=== PATIENT | female | born 1965 | race Caucasian/White ===

== ENCOUNTER 2017-01-16 08:25 | Emergency (ER) | payer BC ==
[2017-01-16] MEDS ORDERED: HALOPERIDOL LACTATE INJ 5 MG/1 ML VIAL IV ONE (08:30)
[2017-01-16] MEDS ORDERED: ONDANSETRON HCL INJ/PF 4 MG/2 ML SDV IV ONE (08:30)
[2017-01-16 08:58] LABS: ABSOLUTE LYMPHOCYTES (AUTO) 0.9 10^3/uL (0.5-4.7); ABSOLUTE MONOCYTES (AUTO) 0.6 10^3/uL (0.1-1.4); BASOPHILS % (AUTO) 0.2 % (0-2); HEMATOCRIT 38.4 % (36.0-47.0); HEMOGLOBIN 13.1 g/dL (12.0-15.5); HGB HCT DIFFERENCE 0.9; LYMPHOCYTES % (AUTO) 5.8 % (13-45); MEAN CORPUSCULAR HEMOGLOBIN 26.6 pg (27.0-33.4); MEAN CORPUSCULAR HGB CONC 34.2 g/dL (32.0-36.0); MEAN CORPUSCULAR VOLUME 78 fl (80-97); MONOCYTES % (AUTO) 3.6 % (3-13); RED BLOOD COUNT 4.93 10^6/uL (3.72-5.28); RED CELL DISTRIBUTION WIDTH 13.2 % (11.5-14.0); SEGMENTED NEUTROPHILS % (AUTO) 90.4 % (42-78); WHITE BLOOD COUNT 15.5 10^3/uL (4.0-10.5)
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
[2017-01-16 09:18] LABS: ALANINE AMINOTRANSFERASE 43 U/L (9-52); ALBUMIN 4.1 g/dL (3.5-5.0); ALKALINE PHOSPHATASE 153 U/L (38-126); ANION GAP 16 (5-19); ASPARTATE AMINO TRANSFERASE 23 U/L (14-36); BILIRUBIN,DIRECT 0.3 mg/dL (0.0-0.4); BLOOD UREA NITROGEN 16 mg/dL (7-20); CALCIUM 9.9 mg/dL (8.4-10.2); CARBON DIOXIDE 19 mmol/L (22-30); CHLORIDE 107 mmol/L (98-107); CREATINE KINASE 43 U/L (30-135); GLUCOSE 182 mg/dL (75-110); POTASSIUM 3.6 mmol/L (3.6-5.0); SODIUM 141.6 mmol/L (137-145); TOTAL PROTEIN 6.7 g/dL (6.3-8.2)
[2017-01-16 09:23] LABS: CREATINE KINASE MB 1.63 ng/mL (<4.55); TROPONIN I 0.027 ng/mL
--- NOTE | 2017-01-16 11:05 | RADIOLOGY REPORT (SQ) ---
EXAM DESCRIPTION: CTA CHEST COMPLETED DATE/TIME: 01/16/2017 10:02 am REASON FOR STUDY: sob COMPARISON: 07/24/2012 TECHNIQUE: CT scan of the chest performed using helical scanning technique with dynamic intravenous contrast injection. Images reviewed with lung, soft tissue and bone windows. Reconstructed coronal and sagittal MPR images reviewed. Additional 3 dimensional post-processing performed to develop Maximal Intensity Projection images (MT P). All images stored on PACS. All CT scanners at this facility use dose modulation, iterative reconstruction, and/or weight based d osing when appropriate to reduce radiation dose to as low as reasonably achievable (ALARA). [facility]: Dose Right [facility]: CareDose [facility]: Dose Right [facility]: Teradose 4D [facility]: [employer] CONTRAST TYPE AND DOSE: contrast/concentration: Isovue 370.00 mg/ml; Total Contrast Delivered: 61.0 ml; Total Saline Delivered: 80.0 ml Contrast bolus adequate for pulmonary arteries and aorta. RENAL FUNCTION: GFR > 60. RADIATION DOSE: 27.55 . LIMITATIONS: None. FINDINGS: LUNGS AND PLEURA: Stable areas of peripheral scarring. AORTA AND GREAT VESSELS: No aneurysm. Contrast bolus not optimized for the aorta. HEART: No pericardial effusion. No significant coronary artery calcifications. PULMONARY ARTERIES: No emboli visualized in the main pulmonary arteries or the segmental branches. HILAR AND MEDIASTINAL STRUCTURES: 2 cm right hilar node, stable. HARDWARE: None in the chest. UPPER ABDOMEN: No significant findings. Limited exam. THYROID AND OTHER SOFT TISSUES: Stable left thyroid nodule. BONES: No acute or significant finding. 3D MIPS: Confirm above findings. OTHER: No other significant finding. IMPRESSION: No acute findings in the chest. COMMENT: Quality ID # [id number]: Final reports with documentation of one or more dose reduction techniques (e.g., Automated exposure control, adjustment of the mA and/or kV according to patient size, use of iterative reconstruction technique) TECHNICAL DOCUMENTATION: JOB ID: [id number] [employer]- All Rights Reserved
[2017-01-16 11:31] VITALS: BP 160/79
== END 2017-01-16 11:31 | disposition home or self-care (01) ==
LOC: ER 08:25
DX: R06.02 Shortness of breath (principal); R11.2 Nausea with vomiting, unspecified; R19.7 Diarrhea, unspecified; I10 Essential (primary) hypertension; M79.1 Myalgia; F17.210 Nicotine dependence, cigarettes, uncomplicated; Z90.710 Acquired absence of both cervix and uterus
CPT/HCPCS: 99285; 96374; 96375; 36415; 82553; 82550; 85025; 80053; 84484; 87804; 71275; J1630; J2405

== ENCOUNTER 2017-01-17 15:50 | Emergency (ER) | payer BC ==
[2017-01-17 15:59] VITALS: BP 144/91
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
== END 2017-01-17 16:47 | disposition home or self-care (01) ==
LOC: ER 15:50
DX: T45.0X5A Adverse effect of antiallergic and antiemetic drugs, initial encounter (principal); R11.2 Nausea with vomiting, unspecified; F17.210 Nicotine dependence, cigarettes, uncomplicated
CPT/HCPCS: 99283

== ENCOUNTER 2018-10-06 07:29 | Inpatient (IN) | payer BC ==
[2018-10-06] MEDS ORDERED: DIPHENHYDRAMINE HCL 50 MG/ML VIAL IV ONE (08:09)
[2018-10-06] MEDS ORDERED: NORMAL SALINE 1000 ML 1,000 ML IV ONE (08:09)
[2018-10-06 08:24] LABS: ABSOLUTE MONOCYTES (AUTO) 0.3 10^3/uL (0.1-1.4); ABSOLUTE NEUT (AUTO) 8.6 10^3/uL (1.7-8.2); BASOPHILS % (AUTO) 0.2 % (0-2); EOSINOPHILS % (AUTO) 0.1 % (0-6); LYMPHOCYTES % (AUTO) 9.8 % (13-45); MEAN CORPUSCULAR HEMOGLOBIN 26.4 pg (27.0-33.4); MEAN CORPUSCULAR HGB CONC 35.2 g/dL (32.0-36.0); MEAN CORPUSCULAR VOLUME 75 fl (80-97); PLATELET COUNT 324 10^3/uL (150-450); RED BLOOD COUNT 4.93 10^6/uL (3.72-5.28); RED CELL DISTRIBUTION WIDTH 13.5 % (11.5-14.0); SEGMENTED NEUTROPHILS % (AUTO) 86.9 % (42-78); TOTAL CELLS COUNTED % (AUTO) 100 %; WHITE BLOOD COUNT 9.9 10^3/uL (4.0-10.5)
--- NOTE | 2018-10-06 08:42 | RADIOLOGY REPORT (SQ) ---
EXAM DESCRIPTION: ACUTE ABDOMEN SERIES COMPLETED DATE/TIME: 10/06/2018 8:27 am REASON FOR STUDY: Generalized abdominal pain with nausea COMPARISON: None. NUMBER OF VIEWS: Three views. TECHNIQUE: Frontal chest, supine abdomen and upright/decubitus abdomen radiographic images acquired. LIMITATIONS: None. FINDINGS: CHEST: Suspect old right posterior rib fractures. No acute infiltrates. FREE AIR: None. No abnormal gas collections. BOWEL GAS PATTERN: Nonobstructive pattern. No dilated loops or air fluid levels. CALCIFICATIONS: No suspicious calcifications. HARDWARE: None in the abdomen. SOFT TISSUES: No gross mass or suggestion of organomegaly. BONES: No acute fracture. No worrisome bone lesions. OTHER: No other significant finding. IMPRESSION: NO RADIOGRAPHIC EVIDENCE FOR ACUTE ABDOMINAL DISEASE. TECHNICAL DOCUMENTATION: JOB ID: [id number] [employer]- All Rights Reserved Reading location - IP/workstation name: [email or web address]
[2018-10-06 08:43] LABS: ALBUMIN 4.1 g/dL (3.5-5.0); ALKALINE PHOSPHATASE 121 U/L (38-126); ANION GAP 16 (5-19); ASPARTATE AMINO TRANSFERASE 25 U/L (14-36); BILIRUBIN,DIRECT 0.2 mg/dL (0.0-0.4); BILIRUBIN,TOTAL 0.6 mg/dL (0.2-1.3); BLOOD UREA NITROGEN 17 mg/dL (7-20); CALCIUM 10.3 mg/dL (8.4-10.2); CARBON DIOXIDE 21 mmol/L (22-30); CHLORIDE 98 mmol/L (98-107); GLUCOSE 195 mg/dL (75-110); TOTAL PROTEIN 7.2 g/dL (6.3-8.2)
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
[2018-10-06 09:10] LABS: AMORPHOUS SEDIMENT,URINE TRACE /HPF; APPEARANCE,URINE CLOUDY; BILIRUBIN,URINE NEGATIVE (NEGATIVE); COLOR,URINE YELLOW; GLUCOSE, URINE NEGATIVE (NEGATIVE); KETONES,URINE 20 mg/dL (NEGATIVE); LEUKOCYTE ESTERASE,URINE LARGE (NEGATIVE); NITRITE,URINE NEGATIVE (NEGATIVE); PROTEIN,URINE 30 mg/dL (NEGATIVE); URINE SPECIFIC GRAVITY 1.015; UROBILINOGEN,URINE NEGATIVE mg/dL (<2.0)
[2018-10-06] MEDS ORDERED: CEFTRIAXONE 1 GM/D5W RTU 1 GM/50 ML RTUPB IV ONE (09:37)
[2018-10-06 11:23] LABS: AMORPHOUS SEDIMENT,URINE TRACE /HPF; APPEARANCE,URINE CLEAR; BILIRUBIN,URINE NEGATIVE (NEGATIVE); COLOR,URINE STRAW; GLUCOSE, URINE 50 mg/dL (NEGATIVE); KETONES,URINE NEGATIVE (NEGATIVE); LEUKOCYTE ESTERASE,URINE TRACE (NEGATIVE); NITRITE,URINE POSITIVE (NEGATIVE); PROTEIN,URINE NEGATIVE (NEGATIVE); URINE SPECIFIC GRAVITY 1.009; UROBILINOGEN,URINE NEGATIVE mg/dL (<2.0)
[2018-10-06 12:39] LABS: VENOUS BLOOD BASE EXCESS 0.6 mmol/L; VENOUS BLOOD PCO2 26.6 mmHg (35-63); VENOUS BLOOD PH 7.54 (7.30-7.42)
--- NOTE | 2018-10-06 13:40 | RADIOLOGY REPORT (SQ) ---
EXAM DESCRIPTION: CTA CHEST COMPLETED DATE/TIME: 10/06/2018 1:24 pm REASON FOR STUDY: Hyperventilating, elevated d-dimer COMPARISON: [address] chest studies. TECHNIQUE: CT scan of the chest performed using helical scanning technique with dynamic intravenous contrast injection. Images reviewed with lung, soft tissue and bone windows. Reconstructed coronal and sagittal MPR images reviewed. Additional 3 dimensional post-processing performed to develop Maximal Intensity Projection images (AR P). All images stored on PACS. All CT scanners at this facility use dose modulation, iterative reconstruction, and/or weight based d osing when appropriate to reduce radiation dose to as low as reasonably achievable (ALARA). [facility]: Dose Right [facility]: CareDose [facility]: Dose Right [facility]: Teradose 4D [facility]: [employer] RENAL FUNCTION: GFR > 60. RADIATION DOSE: CT Rad equipment meets quality standard of care and radiation dose reduction techniq ues were employed. CTDIvol: 9.9 - 14.3 mGy. DLP: 500 mGy-cm. . LIMITATIONS: Slightly suboptimal opacification of the pulmonary arteries. Motion artifact limits ev aluation of the small caliber branches in the lower lobes. FINDINGS: LUNGS AND PLEURA: Motion artifact. 4 mm left lower lobe pulmonary nodule, image 68. This looks chronic. No significant pleural disease. AORTA AND GREAT VESSELS: No aneurysm. Contrast bolus not optimized for the aorta. HEART: No pericardial effusion. No significant coronary artery calcifications. PULMONARY ARTERIES: As above, slightly sub optimal opacification with limiting motion particularly in the lung bases. No central main pulmonary artery clot. Peripheral lower lobe branch segmental and subsegmental clot is possible, however poor opacification here is felt to be generally related to mot ion artifact. HILAR AND MEDIASTINAL STRUCTURES: No identified masses or abnormal nodes. HARDWARE: None in the chest. UPPER ABDOMEN: Presumed scarring in the left kidney, lobulated mildly atrophic appearance. Probable renal cysts bilaterally. THYROID AND OTHER SOFT TISSUES: Enlarged thyroid, multinodular appearance. Airway is patent. No axi llary adenopathy. BONES: No acute or significant finding. 3D MIPS: Confirm above findings. OTHER: No other significant finding. IMPRESSION: 1. No main pulmonary embolus detected. Lower lobe peripheral branches are not well assessed, see amado itations above. 2. 4 mm left lower lobe pulmonary nodule, stable. COMMENT: Quality ID # [id number]: Final reports with documentation of one or more dose reduction techniques (e.g., Automated exposure control, adjustment of the mA and/or kV according to patient size, use of iterative reconstruction technique) TECHNICAL DOCUMENTATION: JOB ID: [id number] [employer]- All Rights Reserved Reading location - IP/workstation name: [email or web address] AND RECEIVING [email or web address]
[2018-10-06 14:37] LABS: FREE T3 > 22.80 pg/mL (2.77-5.27); FREE T4 (FREE THYROXINE) > 6.99 ng/dL (0.78-2.19)
--- NOTE | 2018-10-06 14:37 | EKG REPORT ---
SEVERITY:- ABNORMAL ECG - SINUS TACHYCARDIA MULTIFORM VENTRICULAR PREMATURE COMPLEXES FIRST DEGREE AV BLOCK CONSIDER LEFT VENTRICULAR HYPERTROPHY : Confirmed by: Justice Jacob MD 06-Oct-2018 14:36:39
[2018-10-06] MEDS ORDERED: METOPROLOL TARTRATE PF/INJ 5 MG/5 ML SDV IV ONE (14:44)
[2018-10-06] MEDS ORDERED: ONDANSETRON HCL INJ/PF 4 MG/2 ML SDV IV PRN (15:38)
[2018-10-06] MEDS ORDERED: ACETAMINOPHEN 325 MG TABLET PO PRN (15:38)
[2018-10-06] MEDS ORDERED: IPRATROPIUM/ALBUTEROL 0.5-2.5 MG/3 ML AMPUL NEB PRN (15:38)
[2018-10-06] MEDS ORDERED: PROMETHAZINE HCL INJ 25 MG/1 ML VIAL IV PRN (15:38)
[2018-10-06] MEDS ORDERED: MAG HYDROX/AL HYDROX/SIMETH SUSP 30 ML UDCUP PO PRN (15:38)
[2018-10-06 15:46] LABS: URINE AMPHETAMINES SCREEN NEGATIVE; URINE BARBITURATES SCREEN NEGATIVE; URINE BENZODIAZEPINES SCREEN NEGATIVE; URINE COCAINE SCREEN NEGATIVE; URINE MARIJUANA (THC) SCREEN UNCONFIRMED POSITIVE; URINE METHADONE SCREEN NEGATIVE; URINE PHENCYCLIDINE SCREEN NEGATIVE
--- NOTE | 2018-10-06 16:04 | PDOC H&P ---
History of Present Illness Patient complains of: N/V/D, anxiety and fatigue History of Present Illness: BEBE CARCAMO is a 53 year old female with no significant past medical history other than tobacco dependence who presented to the emergency department today with a report of onset of severe fatigue beginning Monday, followed by onset of increased heart rate, palpitations, inability to sleep, anxiety, nausea vomiting and diarrhea beginning yesterday. She does note that she has been heat intolerant with frequent hot flashes, and a 10 to 20 pound weight loss over the previous 1 to 2 months. Evaluation in the emergency department found Tachycardia (131), hypertension 163/105), tachypnea (26) unremarkable CBC, elevated d-dimer, acute respiratory alkalosis by ABG, unremarkable chemistry, A1c 5.6%, and UTI by urinalysis. Acute abdominal series was benign, and CTA of the chest was negative for pulmonary embolus, acute findings, but is redemonstrated 4 mm left lower lobe pulmonary nodule that is stable from prior exams. Of significance, the patient's TSH was undetectable with a free T4>6.99 and free T3>22.8 (exceeding our laboratory's ability to measure). The patient was provided Lopressor 5 mg IV x1, a 1 L normal saline bolus, and referred to the hospitalist service for admission and management of thyroid storm. Past Medical History Cardiac Medical History: Denies: Congestive Heart Failure, Coronary Artery Disease, Myocardial Infarction, Hyperlipidema, Hypertension Pulmonary Medical History: Reports: None EENT Medical History: Reports: None Neurological Medical History: Denies: Ischemic CVA, Migraine Endocrine Medical History: Reports: None Renal/ Medical History: Reports: None GI Medical History: Reports: None Musculoskeltal Medical History: Reports: None Skin Medical History: Reports: None Psychiatric Medical History: Reports: Tobacco Dependency Traumatic Medical History: Reports: None Hematology: Reports: None Infectious Medical History: Reports: None Denies: Clostridium Difficile Past Surgical History Past Surgical History: Reports: Hysterectomy, Orthopedic Surgery - L4-5 discectomy 1986, Other - Ex lap with liver repair Social History Information Source: Patient Lives with: Alone Smoking Status: Current Every Day Smoker Cigarettes Packs Per Day: 0.3 Frequency of Alcohol Use: None Hx Recreational Drug Use: No Hx Prescription Drug Abuse: No - Advance Directive Resuscitation Status: Full Code Family History Family History: Reviewed & Not Pertinent, CAD, CVA Parental Family History Reviewed: Yes Children Family History Reviewed: Yes Sibling(s) Family History Reviewed.: Yes Medication/Allergy Home Medications: Metoclopramide HCl [Reglan 10 mg Tablet] 1 - 2 tab PO Q6 #25 tablet 01/16/17 Allergies/Adverse Reactions: metoclopramide [From Reglan] Allergy (Verified 10/06/18 07:31) Review of Systems Constitutional: PRESENT: anorexia, weight loss. ABSENT: chills, fever(s), headache(s), weight gain Eyes: ABSENT: visual disturbances Ears: ABSENT: hearing changes Cardiovascular: PRESENT: palpitations. ABSENT: chest pain, dyspnea on exertion, edema, orthropnea Respiratory: ABSENT: cough, hemoptysis Gastrointestinal: PRESENT: diarrhea, nausea, vomiting. ABSENT: abdominal pain, constipation, hematemesis, hematochezia Genitourinary: ABSENT: dysuria, hematuria Musculoskeletal: ABSENT: joint swelling Integumentary: ABSENT: rash, wounds Neurological: PRESENT: restless legs. ABSENT: abnormal gait, abnormal speech, confusion, dizziness, focal weakness, syncope Psychiatric: PRESENT: anxiety. ABSENT: depression, homidical ideation, suicidal ideation Endocrine: PRESENT: heat intolerance. ABSENT: cold intolerance, polydipsia, polyuria Hematologic/Lymphatic: ABSENT: easy bleeding, easy bruising Physical Exam Vital Signs: Temp Pulse Resp BP Pulse Ox 97.7 F 98 24 H 165/92 H 97 10/06/18 07:33 10/06/18 07:33 10/06/18 14:01 10/06/18 14:00 10/06/18 14:01 Intake & Output 10/05/18 10/06/18 10/07/18 06:59 06:59 06:59 Intake Total 1050 Balance 1050 Weight 48.4 kg General appearance: PRESENT: no acute distress, cooperative, thin, well- developed, well-nourished Head exam: PRESENT: atraumatic, normocephalic Eye exam: PRESENT: conjunctiva pink, EOMI, PERRLA, other - lid lag. ABSENT: scleral icterus Ear exam: PRESENT: normal external ear exam Mouth exam: PRESENT: moist, tongue midline Teeth exam: PRESENT: poor dentation Neck exam: PRESENT: thyromegaly. ABSENT: carotid bruit, JVD, lymphadenopathy Respiratory exam: PRESENT: clear to auscultation karl, symmetrical, unlabored. ABSENT: rales, rhonchi, wheezes Cardiovascular exam: PRESENT: RRR, +S1, +S2, tachycardia. ABSENT: diastolic murmur, rubs, systolic murmur Pulses: PRESENT: normal dorsalis pedis pul Vascular exam: PRESENT: normal capillary refill GI/Abdominal exam: PRESENT: normal bowel sounds, soft. ABSENT: distended, guarding, mass, organolmegaly, rebound, tenderness Rectal exam: PRESENT: deferred Extremities exam: PRESENT: full ROM. ABSENT: calf tenderness, clubbing, pedal edema Neurological exam: PRESENT: alert, awake, oriented to person, oriented to place, oriented to time, oriented to situation, CN II-XII grossly intact. ABSENT: motor sensory deficit Psychiatric exam: PRESENT: anxious, appropriate affect, normal mood. ABSENT: homicidal ideation, suicidal ideation Focused psych exam: PRESENT: restlessness Skin exam: PRESENT: dry, intact, warm. ABSENT: cyanosis, rash Results Laboratory Results: 10/06/18 08:04 10/06/18 08:04 10/06/18 10/06/18 10/06/18 08:04 08:04 08:04 WBC 9.9 RBC 4.93 Hgb 13.0 Hct 37.0 MCV 75 L MCH 26.4 L MCHC 35.2 RDW 13.5 Plt Count 324 Seg Neutrophils % 86.9 H Carbonic Acid HCO3/H2CO3 Ratio ABG pH ABG pCO2 ABG pO2 ABG HCO3 ABG O2 Saturation ABG Base Excess VBG pH VBG pCO2 VBG HCO3 VBG Base Excess FiO2 Sodium 135.1 L Potassium 4.0 Chloride 98 Carbon Dioxide 21 L Anion Gap 16 BUN 17 Creatinine 0.57 Est GFR ( Amer) > 60 Glucose 195 H Calcium 10.3 H Total Bilirubin 0.6 AST 25 Alkaline Phosphatase 121 Total Protein 7.2 Albumin 4.1 Lipase 72.9 TSH < 0.01 L Free T4 Free T3 pg/mL Urine Color Urine Appearance Urine pH Ur Specific Benton Urine Protein Urine Glucose (UA) Urine Ketones Urine Blood Urine Nitrite Ur Leukocyte Esterase Urine WBC (Auto) Urine RBC (Auto) 10/06/18 10/06/18 10/06/18 08:04 08:30 10:58 WBC RBC Hgb Hct MCV MCH MCHC RDW Plt Count Seg Neutrophils % Carbonic Acid HCO3/H2CO3 Ratio ABG pH ABG pCO2 ABG pO2 ABG HCO3 ABG O2 Saturation ABG Base Excess VBG pH VBG pCO2 VBG HCO3 VBG Base Excess FiO2 Sodium Potassium Chloride Carbon Dioxide Anion Gap BUN Creatinine Est GFR ( Amer) Glucose Calcium Total Bilirubin AST Alkaline Phosphatase Total Protein Albumin Lipase TSH Free T4 > 6.99 H Free T3 pg/mL > 22.80 H Urine Color YELLOW STRAW Urine Appearance CLOUDY CLEAR Urine pH 9.0 8.0 Ur Specific Benton 1.015 1.009 Urine Protein 30 H NEGATIVE Urine Glucose (UA) NEGATIVE 50 H Urine Ketones 20 H NEGATIVE Urine Blood SMALL H SMALL H Urine Nitrite NEGATIVE POSITIVE H Ur Leukocyte Esterase LARGE H TRACE H Urine WBC (Auto) >182 10 Urine RBC (Auto) 31 2 10/06/18 10/06/18 12:15 12:15 WBC RBC Hgb Hct MCV MCH MCHC RDW Plt Count Seg Neutrophils % Carbonic Acid Cancelled HCO3/H2CO3 Ratio Cancelled ABG pH Cancelled ABG pCO2 Cancelled ABG pO2 Cancelled ABG HCO3 Cancelled ABG O2 Saturation Cancelled ABG Base Excess Cancelled VBG pH 7.54 H VBG pCO2 26.6 L VBG HCO3 22.0 VBG Base Excess 0.6 FiO2 Cancelled Sodium Potassium Chloride Carbon Dioxide Anion Gap BUN Creatinine Est GFR ( Amer) Glucose Calcium Total Bilirubin AST Alkaline Phosphatase Total Protein Albumin Lipase TSH Free T4 Free T3 pg/mL Urine Color Urine Appearance Urine pH Ur Specific B[place] Urine Protein Urine Glucose (UA) Urine Ketones Urine Blood Urine Nitrite Ur Leukocyte Esterase Urine WBC (Auto) Urine RBC (Auto) Impressions: Acute Abdomen Series 10/06/18 08:08 IMPRESSION: NO RADIOGRAPHIC EVIDENCE FOR ACUTE ABDOMINAL DISEASE. Chest/Abdomen CTA 10/06/18 12:50 IMPRESSION: 1. No main pulmonary embolus detected. Lower lobe peripheral branches are not well assessed, see limitations above. 2. 4 mm left lower lobe pulmonary nodule, stable. Assessment and Plan - Diagnosis (1) Thyrotoxicosis Qualifiers: Thyrotoxicosis type: unspecified thyrotoxicosis type Thyrotoxic crisis or storm presence: with thyrotoxic crisis or storm Qualified Code(s): E05.91 - Thyrotoxicosis, unspecified with thyrotoxic crisis or storm Is this a current diagnosis for this admission?: Yes Plan: Patient is admitted to ICU on continuous cardiac telemetry. Continue generous IV fluids. Start propanolol 60 mg p.o. every 6 hours. Start PTU 200 mg every 4 hours. Start SSKI iodine solution every 6 hours. Start hydrocortisone 100 mg IV every 8 hours. Antiemetics as needed. Tylenol as needed for fever/headache; avoid ASA. Thyroid U/S pending. (2) UTI (urinary tract infection) Qualifiers: Urinary tract infection type: acute cystitis Hematuria presence: with hematuria Qualified Code(s): N30.01 - Acute cystitis with hematuria Is this a current diagnosis for this admission?: Yes Plan: Urinalysis reveals urinary tract infection with positive glucose, blood, nitrites, leukoesterase, and WBCs. Patient does endorse increased urinary frequency, help back, has endorsed increased water intake due to thirst. Urine culture is pending. IV Rocephin. 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 Management as above. Cardiac diet. (4) Tachycardia Is this a current diagnosis for this admission?: Yes Plan: Secondary to thyroid storm. Management as above. (5) Tobacco dependence Is this a current diagnosis for this admission?: Yes Plan: Smoking cessation encouraged, nicotine replacement therapies provided. - Time Time Spent with patient: 35 or more minutes Medications reviewed and adjusted accordingly: Yes Anticipated discharge: Home - Inpatient Certification Based on my medical assessment, after consideration of the patient's c omorbidities, presenting symptoms, or acuity I expect that the services needed warrant INPATIENT care.: Yes I certify that my determination is in accordance with my understanding of Medicare's requirements for reasonable and necessary INPATIENT services [42 CFR 412.3e].: Yes Medical Necessity: Need Close Monitoring Due to Risk of Patient Decompensation, Need For Continuous Telemetry Monitoring, Risk of Complication if Not Cared For in Hospital
[2018-10-06] MEDS: PROPRANOLOL HCL 20 MG TABLET PO SCH (16:58)
[2018-10-06] MEDS: POTASSIUM IODIDE 1 GM/1 ML 30 ML BOTTLE PO SCH (16:59)
[2018-10-06] MEDS: NORMAL SALINE 1000 ML 1,000 ML IV PRN (18:39)
--- NOTE | 2018-10-06 18:59 | RADIOLOGY REPORT (SQ) ---
EXAM DESCRIPTION: U/S THYROID/SFT TISS HD NECK COMPLETED DATE/TIME: 10/06/2018 6:45 pm REASON FOR STUDY: Thyroid justin COMPARISON: None. TECHNIQUE: Dynamic and static morales-scale images acquired of the thyroid gland. Selected additional c olor/power Doppler images recorded. All images stored to PACS. LIMITATIONS: None. FINDINGS: RIGHT LOBE: 4.3 cm. Heterogeneous echotexture. Hypervascular. No cystic or solid masses . LEFT LOBE: 5.8 cm. Heterogeneous echotexture. Hypervascular. No cystic or solid masses. ISTHMUS: 5 mm. Heterogeneous echotexture. No cystic or solid masses. OTHER: No other significant finding. IMPRESSION: ENLARGED THYROID WITH HETEROGENOUS ECHOTEXTURE AND HYPERVASCULARITY. TECHNICAL DOCUMENTATION: JOB ID: [id number] [employer]- All Rights Reserved Reading location - IP/workstation name: [email or web address]
[2018-10-06] MEDS: HEPARIN SOD (PORCINE) 5,000 UNIT/ML 1 ML VIAL SUBCUT SCH (21:18)
[2018-10-06] MEDS: PROPYLTHIOURACIL 50 MG TABLET PO SCH ×2 (21:18→23:55)
[2018-10-06] MEDS: HYDROCORTISONE SOD SUCCINATE INJ/PF 100 MG/2 ML SDV IV SCH (21:19)
[2018-10-07] MEDS: PROPRANOLOL HCL 20 MG TABLET PO SCH ×2 (01:10→05:38)
[2018-10-07] MEDS: POTASSIUM IODIDE 1 GM/1 ML 30 ML BOTTLE PO SCH ×3 (01:15→11:40)
[2018-10-07] MEDS: NORMAL SALINE 1000 ML 1,000 ML IV PRN ×3 (03:05→21:10)
[2018-10-07 03:56] LABS: ABSOLUTE MONOCYTES (AUTO) 0.4 10^3/uL (0.1-1.4); ABSOLUTE NEUT (AUTO) 5.8 10^3/uL (1.7-8.2); BASOPHILS % (AUTO) 0.4 % (0-2); HEMATOCRIT 35.2 % (36.0-47.0); HEMOGLOBIN 12.1 g/dL (12.0-15.5); MEAN CORPUSCULAR HEMOGLOBIN 26.2 pg (27.0-33.4); MEAN CORPUSCULAR HGB CONC 34.5 g/dL (32.0-36.0); MEAN CORPUSCULAR VOLUME 76 fl (80-97); MONOCYTES % (AUTO) 5.6 % (3-13); PLATELET COUNT 282 10^3/uL (150-450); RED BLOOD COUNT 4.64 10^6/uL (3.72-5.28); RED CELL DISTRIBUTION WIDTH 13.4 % (11.5-14.0); TOTAL CELLS COUNTED % (AUTO) 100 %; WHITE BLOOD COUNT 7.3 10^3/uL (4.0-10.5)
[2018-10-07 04:13] LABS: ANION GAP 9 (5-19); BLOOD UREA NITROGEN 13 mg/dL (7-20); CALCIUM 9.8 mg/dL (8.4-10.2); CARBON DIOXIDE 24 mmol/L (22-30); CHLORIDE 104 mmol/L (98-107); GLUCOSE 138 mg/dL (75-110); POTASSIUM 3.8 mmol/L (3.6-5.0)
[2018-10-07] MEDS: PROPYLTHIOURACIL 50 MG TABLET PO SCH ×3 (04:17→11:38)
[2018-10-07] MEDS: HEPARIN SOD (PORCINE) 5,000 UNIT/ML 1 ML VIAL SUBCUT SCH ×3 (05:38→22:14)
[2018-10-07] MEDS: HYDROCORTISONE SOD SUCCINATE INJ/PF 100 MG/2 ML SDV IV SCH ×2 (05:38→13:33)
[2018-10-07] MEDS: CEFTRIAXONE 1 GM/D5W RTU 1 GM/50 ML RTUPB IV SCH (09:33)
[2018-10-07] MEDS: NICOTINE 7 MG/24 HR PATCH.TD24 TD SCH (09:41)
[2018-10-07 11:59] LABS: TROPONIN I 0.098 ng/mL
[2018-10-07] MEDS ORDERED: HYDROXYZINE PAMOATE 25 MG CAPSULE PO PRN (12:39)
[2018-10-07] MEDS ORDERED: METOPROLOL TARTRATE PF/INJ 5 MG/5 ML SDV IV ONE (13:00)
--- NOTE | 2018-10-07 16:33 | PDOC PROGRESS REPORT ---
Subjective Progress Note for:: 10/07/18 Subjective:: BEBE CARCAMO is a 53 year old female with no significant past medical history other than tobacco dependence who was admitted 10/06/18 for thyrotoxicosis with thyroid storm. Patient is seen on morning rounds. She is found resting in bed comfortably on room air. She is noted to continue to have an anxious disposition, however, her heart rate is now in the mid 90s with acceptable blood pressures. She reports that her shortness of breath has improved and that she is relieved to longer be restless. She does state that she had difficulty sleeping last night, though this was also slightly improved from previous few days. She does report left chest wall pain that is nonradiating, not associated with symptoms, and without exacerbating or alleviating factors. She denies fever, chills, palpitations, dyspnea, orthopnea, abdominal pain, nausea and vomiting. She reports one diarrheal bowel movement today. She has no other questions or concern. No concerns per nursing. Reason For Visit: THRYOID STORM Physical Exam Vital Signs: Temp Pulse Resp BP Pulse Ox 98.2 F 100 23 H 121/72 98 10/07/18 12:00 10/07/18 12:00 10/07/18 14:00 10/07/18 13:36 10/07/18 14:00 Intake & Output 10/06/18 10/07/18 10/08/18 06:59 06:59 06:59 Intake Total 2050 1500 Output Total 1700 800 Balance 350 700 Weight 49.6 kg General appearance: PRESENT: no acute distress, cooperative, thin, well- developed, well-nourished Head exam: PRESENT: atraumatic, normocephalic Eye exam: PRESENT: conjunctiva pink, EOMI, PERRLA. ABSENT: scleral icterus Ear exam: PRESENT: normal external ear exam Mouth exam: PRESENT: moist, tongue midline Teeth exam: PRESENT: poor dentation Neck exam: ABSENT: carotid bruit, JVD, lymphadenopathy, thyromegaly Respiratory exam: PRESENT: clear to auscultation karl, symmetrical, unlabored. ABSENT: rales, rhonchi, wheezes Cardiovascular exam: PRESENT: gallop, RRR, +S1, +S2. ABSENT: diastolic murmur, rubs, systolic murmur Pulses: PRESENT: normal dorsalis pedis pul Vascular exam: PRESENT: normal capillary refill GI/Abdominal exam: PRESENT: normal bowel sounds, soft. ABSENT: distended, guarding, mass, organolmegaly, rebound, tenderness Rectal exam: PRESENT: deferred Extremities exam: PRESENT: full ROM. ABSENT: calf tenderness, clubbing, pedal edema Neurological exam: PRESENT: alert, awake, oriented to person, oriented to place, oriented to time, oriented to situation, CN II-XII grossly intact. ABSENT: motor sensory deficit Psychiatric exam: PRESENT: anxious, appropriate affect, normal mood. ABSENT: homicidal ideation, suicidal ideation Focused psych exam: PRESENT: restlessness Skin exam: PRESENT: dry, intact, warm. ABSENT: cyanosis, rash Results Laboratory Results: 10/07/18 03:47 10/07/18 03:47 10/07/18 10/07/18 03:47 03:47 WBC 7.3 RBC 4.64 Hgb 12.1 Hct 35.2 L MCV 76 L MCH 26.2 L MCHC 34.5 RDW 13.4 Plt Count 282 Seg Neutrophils % 80.0 H Sodium 137.0 Potassium 3.8 Chloride 104 Carbon Dioxide 24 Anion Gap 9 BUN 13 Creatinine 0.52 Est GFR ( Amer) > 60 Glucose 138 H Calcium 9.8 10/07/18 10/07/18 11:17 15:12 Troponin I 0.098 0.089 NT-Pro-B Natriuret Pep 5820 H Impressions: Thyroid Ultrasound 10/06/18 00:00 IMPRESSION: ENLARGED THYROID WITH HETEROGENOUS ECHOTEXTURE AND HYPERVASCULARITY. Acute Abdomen Series 10/06/18 08:08 IMPRESSION: NO RADIOGRAPHIC EVIDENCE FOR ACUTE ABDOMINAL DISEASE. Chest/Abdomen CTA 10/06/18 12:50 IMPRESSION: 1. No main pulmonary embolus detected. Lower lobe peripheral branches are not well assessed, see limitations above. 2. 4 mm left lower lobe pulmonary nodule, stable. Assessment and Plan - Diagnosis (1) Thyrotoxicosis Qualifiers: Thyrotoxicosis type: unspecified thyrotoxicosis type Thyrotoxic crisis or storm presence: with thyrotoxic crisis or storm Qualified Code(s): E05.91 - Thyrotoxicosis, unspecified with thyrotoxic crisis or storm Is this a current diagnosis for this admission?: Yes Plan: Patient was admitted to ICU on continuous cardiac telemetry. Continue IV fluids. Discussed with Dr. Piña, Biometric Screener at [facility]. Will transition to metoprolol XL 100 mg BID and methimazole 30 mg p.o. twice daily May discontinue SSKI and hydrocortisone Antiemetics as needed. Tylenol as needed for fever/headache; avoid ASA. Patient stable for discharge once blood pressures are controlled and heart rate is stable at less than 90. Will ensure patient has endocrinology follow-up appointment scheduled prior to discharge. (2) UTI (urinary tract infection) Qualifiers: Urinary tract infection type: acute cystitis Hematuria presence: with hematuria Qualified Code(s): N30.01 - Acute cystitis with hematuria Is this a current diagnosis for this admission?: Yes Plan: Urinalysis reveals urinary tract infection with positive glucose, blood, nitrites, leukoesterase, and WBCs. Patient does endorse increased urinary frequency, help back, has endorsed increased water intake due to thirst. Urine culture shows gram-negative rods. IV Rocephin. (3) High blood pressure Qualifiers: Hypertension type: secondary to endocrine disorders Qualified Code(s): I15.2 - Hypertension secondary to endocrine disorders Is this a current diagnosis for this admission?: Yes Plan: Improved; blood pressures this afternoon 132/64 Secondary to thyroid storm. Management as above. Cardiac diet. (4) Tachycardia Is this a current diagnosis for this admission?: Yes Plan: Improved; heart rate now persistently mid to high 90s Secondary to thyroid storm. Management as above. (5) Tobacco dependence Is this a current diagnosis for this admission?: Yes Plan: Smoking cessation encouraged, nicotine replacement therapies provided. (6) CHF (congestive heart failure) Is this a current diagnosis for this admission?: Yes Plan: Possible CHF; unclear if this was underlying or related to thyrotoxicosis. proBNP is elevated to 5820. Lung sounds are clear, no peripheral edema. Echocardiogram pending. Patient will require cardiology follow-up. (7) Chest pain Qualifiers: Chest pain type: unspecified Qualified Code(s): R07.9 - Chest pain, unspecified Is this a current diagnosis for this admission?: Yes Plan: Patient describes left-sided chest discomfort described as tightness today. She is unable to state when this occurred. Pain is constant, no alleviating or aggravating factors. Heart rate is now in the mid to high 90s; on arrival she was sinus tach in the mid 30s is unclear how long she was tachycardic for prior to her arrival to the emergency department. But perhaps for several days. EKG demonstrated sinus tachycardia. proBNP is elevated 5820. Initial troponin at 0.098; decreased to 0.089. Next line we will continue to trend troponins. Echocardiogram pending. We will discuss with cardiology prior to discharge; may benefit from stress testing, although it is unclear whether or not this can be done during her current admission. Once her she has cardiology follow-up prior to discharge. - Time Time Spent with patient: 35 or more minutes Medications reviewed and adjusted accordingly: Yes Anticipated discharge: Home Within: within 48 hours
[2018-10-07] MEDS: METHIMAZOLE 5 MG TABLET PO SCH (17:42)
[2018-10-07] MEDS: METOPROLOL SUCCINATE 50 MG TAB.SR.24H PO SCH (22:14)
[2018-10-08] MEDS: HEPARIN SOD (PORCINE) 5,000 UNIT/ML 1 ML VIAL SUBCUT SCH (05:59)
[2018-10-08 07:49] VITALS: BP 125/64
[2018-10-08] MEDS: CEFTRIAXONE 1 GM/D5W RTU 1 GM/50 ML RTUPB IV SCH (09:04)
[2018-10-08] MEDS: NICOTINE 7 MG/24 HR PATCH.TD24 TD SCH (09:04)
[2018-10-08] MEDS: METOPROLOL SUCCINATE 50 MG TAB.SR.24H PO SCH (09:09)
[2018-10-08] MEDS: METHIMAZOLE 5 MG TABLET PO SCH (09:09)
--- NOTE | 2018-10-08 19:06 | PDOC DISCHARGE SUMMARY ---
General - Admit/Disc Date/PCP Admission Date/Primary Care Provider: 10/06/18 15:58 Discharge Date: 10/08/18 - Discharge Diagnosis (1) Thyrotoxicosis Is this a current diagnosis for this admission?: Yes Summary: Patient was admitted to ICU on continuous cardiac telemetry. She was supported on IV fluids. She was initially placed on propanolol , PTU, SSKI, and hydrocortisone. Discussed with Dr. Piña, [facility] at [facility]. Based on her recommendations, we transition to metoprolol XL 100 mg BID and methimazole 30 mg p.o. twice daily SSKI and PTU were discontinued. The patient was monitored for an additional 24 hours. At time of discharge, she was normotensive and had had a heart rate in the mid 70s to 80s for 24 hours. The patient continued to have restlessness and an anxious disposition, but denied further chest pain, shortness of breath, nausea. She does report 1-2 episodes of soft bowel movements, although this is also significantly improved. She is discharged home in stable condition. She is advised of the importance of following up with an district court judge in 1 month. She is also instructed to follow-up with Dr. Riddle, emergency vehicle technician, within 1 week. She is encouraged to take her medications as prescribed. She is instructed to return to the emergency department as needed for any concerning symptoms. (2) UTI (urinary tract infection) Is this a current diagnosis for this admission?: Yes Summary: Urinalysis reveals urinary tract infection with positive glucose, blood, nitrites, leukoesterase, and WBCs. Patient does endorse increased urinary frequency, help back, has endorsed increased water intake due to thirst. Urine culture demonstrated E. coli. IV Rocephin x 3 doses, received full course of therapy. (3) High blood pressure Is this a current diagnosis for this admission?: Yes Summary: Patient is now normotensive; blood pressures this afternoon 125/64 Secondary to thyroid storm. Management as above. Cardiac diet. Cardiology follow-up next week. (4) Tachycardia Is this a current diagnosis for this admission?: Yes Summary: Resolved; HR 70-80 x24 hours. Secondary to thyroid storm. Management as above. (5) Tobacco dependence Is this a current diagnosis for this admission?: Yes Summary: Smoking cessation encouraged, nicotine replacement therapies provided. (6) CHF (congestive heart failure) Is this a current diagnosis for this admission?: Yes Summary: Possible CHF; unclear if this was underlying or related to thyrotoxicosis. proBNP is elevated to 5820. Lung sounds are clear, no peripheral edema. Discussed with cardiology today; patient will follow up with Dr. Riddle for additional evaluation next week. (7) Chest pain Is this a current diagnosis for this admission?: Yes Summary: Resolved. Patient described left-sided chest discomfort described as tightness. EKG demonstrated sinus tachycardia. proBNP is elevated 5820. Initial troponin at 0.098->0.089-> 0.[address] Riddle today; likely secondary to thyrotoxicosis and persistent tachycardia. Patient is appropriate for discharge to home with close cardiology follow-up. She will be seen in the office next week for additional evaluation. Patient is instructed to return to the emergency department as needed for any c oncerning symptoms. - Additional Information Resuscitation Status: Full Code Discharge Diet: Cardiac Discharge Activity: Activity As Tolerated, Balance Activity w/Rest Prescriptions: Nicotine [Nicoderm 7 mg/24 Hr Transdermal Patch] 1 each TD DAILY #30 patch.td24 Metoprolol Succinate [Toprol Xl 50 mg Tab.sr] 50 mg PO Q12 #60 tab.sr.24h Hydroxyzine Pamoate [Vistaril 25 mg Capsule] 25 mg PO Q8HP PRN #30 capsule PRN Reason: Home Medications: Acetaminophen [Tylenol 325 mg Tablet] 650 mg PO Q4HP PRN tablet 10/08/18 Hydroxyzine Pamoate [Vistaril 25 mg Capsule] 25 mg PO Q8HP PRN #30 capsule 10/08/18 Metoprolol Succinate [Toprol Xl 50 mg Tab.sr] 50 mg PO Q12 #60 tab.sr.24h 10/08/18 Nicotine [Nicoderm 7 mg/24 Hr Transdermal Patch] 1 each TD DAILY #30 patch.td24 10/08/18 History of Present Illness History of Present Illness: BEBE CARCAMO is a 53 year old female with no significant past medical histor y other than tobacco dependence who presented to the emergency department today with a report of onset of severe fatigue beginning Monday, followed by onset of increased heart rate, palpitations, inability to sleep, anxiety, nausea vomiting and diarrhea beginning yesterday. She does note that she has been heat intolerant with frequent hot flashes, and a 10 to 20 pound weight loss over the previous 1 to 2 months. Evaluation in the emergency department found Tachycardia (131), hypertension 163/105), tachypnea (26) unremarkable CBC, elevated d-dimer, acute respiratory alkalosis by ABG, unremarkable chemistry, A1c 5.6%, and UTI by urinalysis. Acute abdominal series was benign, and CTA of the chest was negative for pulmonary embolus, acute findings, but is redemonstrated 4 mm left lower lobe pulmonary nodule that is stable from prior exams. Of significance, the patient's TSH was undetectable with a free T4>6.99 and free T3>22.8 (exceeding our laboratory's ability to measure). The patient was provided Lopressor 5 mg IV x1, a 1 L normal saline bolus, and referred to the hospitalist service for admission and management of thyroid storm. Physical Exam Vital Signs: Temp Pulse Resp BP Pulse Ox 98.8 F 77 19 125/64 100 10/08/18 09:32 10/08/18 09:32 10/08/18 09:32 10/08/18 09:32 10/08/18 09:32 Intake & Output 10/07/18 10/08/18 10/09/18 06:59 06:59 06:59 Intake Total 2050 3500 Output Total 1700 3000 Balance 350 500 Weight 49.6 kg 51.4 kg General appearance: PRESENT: no acute distress, cooperative, thin, well- developed, well-nourished Head exam: PRESENT: atraumatic, normocephalic Eye exam: PRESENT: conjunctiva pink, EOMI, PERRLA. ABSENT: scleral icterus Ear exam: PRESENT: normal external ear exam Mouth exam: PRESENT: moist, tongue midline Teeth exam: PRESENT: poor dentation Neck exam: ABSENT: carotid bruit, JVD, lymphadenopathy, thyromegaly Respiratory exam: PRESENT: clear to auscultation karl, symmetrical, unlabored. ABSENT: rales, rhonchi, wheezes Cardiovascular exam: PRESENT: RRR. ABSENT: diastolic murmur, rubs, systolic murmur Pulses: PRESENT: normal dorsalis pedis pul Vascular exam: PRESENT: normal capillary refill GI/Abdominal exam: PRESENT: normal bowel sounds, soft. ABSENT: distended, guarding, mass, organolmegaly, rebound, tenderness Rectal exam: PRESENT: deferred Extremities exam: PRESENT: full ROM. ABSENT: calf tenderness, clubbing, pedal edema Neurological exam: PRESENT: alert, awake, oriented to person, oriented to place, oriented to time, oriented to situation, CN II-XII grossly intact. ABSENT: motor sensory deficit Psychiatric exam: PRESENT: appropriate affect, normal mood. ABSENT: homicidal ideation, suicidal ideation Skin exam: PRESENT: dry, intact, warm. ABSENT: cyanosis, rash Results Laboratory Results: 10/07/18 03:47 10/07/18 03:47 10/06/18 08:30 Clean Catch Midstream Urine Culture - Final Escherichia Coli 10/07/18 10/07/18 10/07/18 11:17 15:12 20:35 Troponin I 0.098 0.089 0.064 NT-Pro-B Natriuret Pep 5820 H Impressions: Thyroid Ultrasound 10/06/18 00:00 IMPRESSION: ENLARGED THYROID WITH HETEROGENOUS ECHOTEXTURE AND HYPERVASCULARITY. Acute Abdomen Series 10/06/18 08:08 IMPRESSION: NO RADIOGRAPHIC EVIDENCE FOR ACUTE ABDOMINAL DISEASE. Chest/Abdomen CTA 10/06/18 12:50 IMPRESSION: 1. No main pulmonary embolus detected. Lower lobe peripheral branches are not well assessed, see limitations above. 2. 4 mm left lower lobe pulmonary nodule, stable. Qualifiers - * PATIENT BEING DISCHARGED WITH ANY OF THE FOLLOWING DIAGNOSIS: No Acute Heart Failure - Is this a Heart Failure Patient?: No Plan Discharge Plan: The patient is discharged home in stable condition. She is advised to: It is very important that you keep your appointment with the Pot Maker. Someone will call you on Monday with your appointment. If you have not heard from someone within the next two days, please follow up with us to get your appointment information. You will need to have repeat lab work in 4 weeks to check your thyroid level. Keep your follow up appointment with Dr. Pedro, emergency vehicle technician. Hyperthyroidism can cause heart disease and it is important for you to have your heart health evaluated. Someone will call you on Monday with your appointment information for Dr. Pedro. Take your medications as prescribed. Return to the emergency department as needed for concerning symptoms. Time Spent: Greater than 30 Minutes
--- NOTE | 2018-10-10 10:58 | Progress Note ---
Provider Note Provider Note: The patient requests a return to work note. 10/10/2018- Re: Charissa Quick 61 Ms. Quick is able to return to work at full duty. This is effective as of today October 10, 2017. Sincerely, Ryan Brand MD
== END 2018-10-08 10:00 | disposition home or self-care (01) | DRG 644 ==
LOC: ER 07:29 → EH 15:58 → ICU 17:49
PROVIDERS: ADMIT Internal Medicine; ATTEND Internal Medicine
DX: E05.91 Thyrotoxicosis, unspecified with thyrotoxic crisis or storm (principal); N30.01 Acute cystitis with hematuria; R03.0 Elevated blood-pressure reading, without diagnosis of hypertension; F17.210 Nicotine dependence, cigarettes, uncomplicated; I50.9 Heart failure, unspecified; R00.0 Tachycardia, unspecified; R07.89 Other chest pain; B96.20 Unspecified Escherichia coli [E. coli] as the cause of diseases classified elsewhere; Z82.3 Family history of stroke; Z82.49 Family history of ischemic heart disease and other diseases of the circulatory system
CPT/HCPCS: 36415; 51701; 71275; 74022; 76536; 80048; 80053; 80307; 81001; 82803; 83036; 83690; 83880; 84439; 84443; 84481; 84484; 85025; 85379; 87086; 87088; 87186; 93005; 93010; 96361; 96365; 96375; 99291; J0696; J1200; J1644; J1720; J3490; J7030

== ENCOUNTER → 2018-10-19 | Outpatient (CLI) | payer BC ==
[2018-10-19 14:10] LABS: FREE T4 (FREE THYROXINE) 2.95 ng/dL (0.78-2.19)
[2018-10-19 14:26] LABS: THYROID STIMULATING HORMONE < 0.01 uIU/mL (0.47-4.68)
== END ==
LOC: OD 12:49
PROVIDERS: ATTEND Specialist
DX: E05.90 Thyrotoxicosis, unspecified without thyrotoxic crisis or storm (principal); I10 Essential (primary) hypertension; R01.1 Cardiac murmur, unspecified; R00.0 Tachycardia, unspecified; F17.210 Nicotine dependence, cigarettes, uncomplicated; Z79.899 Other long term (current) drug therapy
CPT/HCPCS: 36415; 84439; 84443; 84481

== ENCOUNTER 2018-11-29 18:53 | Emergency (ER) | payer BC ==
[2018-11-29 21:20] LABS: ABSOLUTE BASOPHILS # (AUTO) 0.1 10^3/uL (0.0-0.2); ABSOLUTE EOSINOPHILS # (AUTO) 0.1 10^3/uL (0.0-0.6); ABSOLUTE LYMPHOCYTES (AUTO) 2.5 10^3/uL (0.5-4.7); ABSOLUTE MONOCYTES (AUTO) 0.8 10^3/uL (0.1-1.4); ABSOLUTE NEUT (AUTO) 7.6 10^3/uL (1.7-8.2); BASOPHILS % (AUTO) 0.5 % (0-2); EOSINOPHILS % (AUTO) 1.2 % (0-6); HEMATOCRIT 41.4 % (36.0-47.0); LYMPHOCYTES % (AUTO) 22.5 % (13-45); MEAN CORPUSCULAR HEMOGLOBIN 26.8 pg (27.0-33.4); MEAN CORPUSCULAR HGB CONC 33.7 g/dL (32.0-36.0); MEAN CORPUSCULAR VOLUME 79 fl (80-97); MONOCYTES % (AUTO) 7.3 % (3-13); PLATELET COUNT 306 10^3/uL (150-450); RED BLOOD COUNT 5.21 10^6/uL (3.72-5.28); RED CELL DISTRIBUTION WIDTH 15.3 % (11.5-14.0); SEGMENTED NEUTROPHILS % (AUTO) 68.5 % (42-78); TOTAL CELLS COUNTED % (AUTO) 100 %
[2018-11-29 21:22] LABS: APPEARANCE,URINE CLEAR; BILIRUBIN,URINE NEGATIVE (NEGATIVE); COLOR,URINE AMBER; GLUCOSE, URINE NEGATIVE (NEGATIVE); KETONES,URINE TRACE mg/dL (NEGATIVE); LEUKOCYTE ESTERASE,URINE MODERATE (NEGATIVE); NITRITE,URINE POSITIVE (NEGATIVE); PROTEIN,URINE NEGATIVE (NEGATIVE); URINE SPECIFIC GRAVITY 1.006
[2018-11-29 21:36] LABS: ALBUMIN 4.6 g/dL (3.5-5.0); ALKALINE PHOSPHATASE 147 U/L (38-126); ANION GAP 9 (5-19); ASPARTATE AMINO TRANSFERASE 22 U/L (14-36); BILIRUBIN,TOTAL 0.4 mg/dL (0.2-1.3); BLOOD UREA NITROGEN 12 mg/dL (7-20); CALCIUM 9.6 mg/dL (8.4-10.2); CARBON DIOXIDE 26 mmol/L (22-30); CHLORIDE 103 mmol/L (98-107); GLUCOSE 96 mg/dL (75-110); POTASSIUM 4.6 mmol/L (3.6-5.0); TOTAL PROTEIN 8.1 g/dL (6.3-8.2)
[2018-11-29] MEDS ORDERED: CEFTRIAXONE 1 GM/D5W RTU 1 GM/50 ML RTUPB IV ONE (23:53)
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
[2018-11-29] MEDS ORDERED: PHENAZOPYRIDINE HCL 200 MG TABLET PO ONE (23:54)
[2018-11-30 00:54] VITALS: BP 145/71
== END 2018-11-30 00:54 | disposition home or self-care (01) ==
LOC: ER 18:53
DX: N39.0 Urinary tract infection, site not specified (principal); R10.2 Pelvic and perineal pain; F17.210 Nicotine dependence, cigarettes, uncomplicated; Z90.710 Acquired absence of both cervix and uterus
CPT/HCPCS: 99283; 96365; 36415; 87086; 83690; 85025; 87088; 80053; 81001; J3490; J0696; 87186

== ENCOUNTER → 2019-04-01 | Outpatient (CLI) | payer BC ==
[2019-04-01 17:33] LABS: FREE T3 7.42 pg/mL (2.77-5.27); FREE T4 (FREE THYROXINE) 1.95 ng/dL (0.78-2.19)
[2019-04-01 17:47] LABS: THYROID STIMULATING HORMONE 0.02 uIU/mL (0.47-4.68)
== END ==
LOC: OD 15:27
PROVIDERS: ATTEND Specialist
DX: E05.90 Thyrotoxicosis, unspecified without thyrotoxic crisis or storm (principal); I10 Essential (primary) hypertension; R01.1 Cardiac murmur, unspecified; F17.210 Nicotine dependence, cigarettes, uncomplicated; E78.5 Hyperlipidemia, unspecified; Z79.899 Other long term (current) drug therapy
CPT/HCPCS: 36415; 84439; 84443; 84481

== ENCOUNTER → 2020-02-17 | Outpatient (CLI) | payer BC ==
[2020-02-17 16:55] LABS: ABSOLUTE EOSINOPHILS # (AUTO) 0.1 10^3/uL (0.0-0.6); ABSOLUTE LYMPHOCYTES (AUTO) 2.4 10^3/uL (0.5-4.7); ABSOLUTE MONOCYTES (AUTO) 0.5 10^3/uL (0.1-1.4); ABSOLUTE NEUT (AUTO) 5.3 10^3/uL (1.7-8.2); ALBUMIN 4.3 g/dL (3.5-5.0); ALKALINE PHOSPHATASE 71 U/L (38-126); ASPARTATE AMINO TRANSFERASE 26 U/L (14-36); BASOPHILS % (AUTO) 0.5 % (0-2); BILIRUBIN,DIRECT 0.3 mg/dL (0.0-0.4); BILIRUBIN,TOTAL 0.6 mg/dL (0.2-1.3); CHOLESTEROL 179.34 mg/dL (0-200); EOSINOPHILS % (AUTO) 1.2 % (0-6); HEMATOCRIT 39.9 % (36.0-47.0); HEMOGLOBIN 13.9 g/dL (12.0-15.5); LYMPHOCYTES % (AUTO) 28.7 % (13-45); MEAN CORPUSCULAR HEMOGLOBIN 28.5 pg (27.0-33.4); MEAN CORPUSCULAR HGB CONC 34.9 g/dL (32.0-36.0); MEAN CORPUSCULAR VOLUME 82 fl (80-97); MONOCYTES % (AUTO) 6.3 % (3-13); PLATELET COUNT 272 10^3/uL (150-450); RED BLOOD COUNT 4.88 10^6/uL (3.72-5.28); RED CELL DISTRIBUTION WIDTH 13.6 % (11.5-14.0); SEGMENTED NEUTROPHILS % (AUTO) 63.3 % (42-78); TOTAL CELLS COUNTED % (AUTO) 100 %; TOTAL PROTEIN 7.1 g/dL (6.3-8.2); TRIGLYCERIDES 92 mg/dL (<150); WHITE BLOOD COUNT 8.4 10^3/uL (4.0-10.5)
[2020-02-17 17:06] LABS: DIRECT LDL 103 mg/dL (<100)
[2020-02-17 17:07] LABS: FREE T3 5.47 pg/mL (2.77-5.27); FREE T4 (FREE THYROXINE) 1.91 ng/dL (0.78-2.19)
[2020-02-17 17:24] LABS: THYROID STIMULATING HORMONE < 0.01 uIU/mL (0.47-4.68)
== END ==
LOC: OD 15:00
PROVIDERS: ATTEND Specialist
DX: E05.90 Thyrotoxicosis, unspecified without thyrotoxic crisis or storm (principal); I10 Essential (primary) hypertension; R01.1 Cardiac murmur, unspecified; R00.0 Tachycardia, unspecified; F17.210 Nicotine dependence, cigarettes, uncomplicated; Z79.899 Other long term (current) drug therapy
CPT/HCPCS: 36415; 80061; 80076; 84439; 84443; 84481; 85025